=== PATIENT | male | born 1970 | race Caucasian/White ===

== ENCOUNTER 2018-03-04 02:16 | Emergency (ER) | payer MEDICAID ==
[~2018-03-04] VITALS: Ht 182.9 cm; Wt 95.5 kg
[2018-03-04 02:17] VITALS: BP 136/85
[2018-03-04] MEDS ORDERED: naproxen 500mg tablet PO ONE (02:30)
== END 2018-03-04 02:43 ==
LOC: ER 02:16
DX: Z04.1 Encounter for examination and observation following transport accident (principal); F17.200 Nicotine dependence, unspecified, uncomplicated; F15.90 Other stimulant use, unspecified, uncomplicated; V49.69XA Unspecified car occupant injured in collision with other motor vehicles in traffic accident, initial encounter; Y93.89 Activity, other specified; Y92.488 Other paved roadways as the place of occurrence of the external cause; Y99.8 Other external cause status
CPT/HCPCS: 99283

== ENCOUNTER 2019-03-28 05:04 | Emergency (ER) | payer MEDICAID, OTHER ==
[~2019-03-28] VITALS: Ht 182.9 cm; Wt 97.7 kg
[2019-03-28] MEDS ORDERED: predniSONE 20 mg tablet PO ONE (05:25)
[2019-03-28] MEDS ORDERED: ipratropium/albuterol 3ml nebule NEB ONE (05:25)
[2019-03-28] MEDS ORDERED: ALBU18HF2 INH (05:44)
[2019-03-28] MEDS ORDERED: PRED20TA PO (05:44)
[2019-03-28] MEDS ORDERED: BENZ-16 PO (05:44)
[2019-03-28] MEDS ORDERED: INHA1INH2 (05:44)
[2019-03-28 05:45] VITALS: BP 116/86
== END 2019-03-28 06:05 | disposition home or self-care (01) ==
LOC: ER 05:05
DX: J98.01 Acute bronchospasm (principal); F17.200 Nicotine dependence, unspecified, uncomplicated; F10.99 Alcohol use, unspecified with unspecified alcohol-induced disorder; F15.90 Other stimulant use, unspecified, uncomplicated; F11.90 Opioid use, unspecified, uncomplicated; Z86.19 Personal history of other infectious and parasitic diseases; Z59.0 Homelessness; Z79.899 Other long term (current) drug therapy; Y90.9 Presence of alcohol in blood, level not specified
CPT/HCPCS: 71046; 94640; 94760; 99283; J7512

== ENCOUNTER 2019-04-19 06:37 | Emergency (ER) | payer MEDICAID, OTHER ==
[~2019-04-19] VITALS: Ht 185.4 cm; Wt 100.0 kg
[~2019-04-19 06:37] MED LIST: ALBU18HF2 INH; BENZ-16 PO; INHA1INH2; PRED20TA PO
[2019-04-19] MEDS ORDERED: methylPREDNISolone sod succ 125mg/2ml vial IV ONE (07:00)
[2019-04-19] MEDS ORDERED: ipratropium/albuterol 3ml nebule NEB ONE (07:20)
[2019-04-19 07:22] LABS: BASOPHILS # (AUTO) 0.1 X10'3 (0-0.2); BASOPHILS % (AUTO) 0.6 % (0-1); EOSINOPHILS % (AUTO) 10.8 % (0-6); HEMATOCRIT 49.6 % (42.0-52.0); HEMOGLOBIN 17.4 g/dl (14.0-17.9); LYMPHOCYTES # (AUTO) 1.8 X10'3 (1.1-4.8); LYMPHOCYTES % (AUTO) 19.2 % (21-51); MEAN CORPUSCULAR HEMOGLOBIN 32.7 PG (27.0-31.0); MEAN CORPUSCULAR HGB CONC 35.2 g/dL (33.0-36.5); MEAN CORPUSCULAR VOLUME 92.9 FL (78-98); MEAN PLATELET VOLUME 8.8 FL (7.4-10.4); MONOCYTES # (AUTO) 0.8 X10'3 (0-0.9); MONOCYTES % (AUTO) 7.9 % (2-12); NEUTROPHILS # (AUTO) 5.9 X10'3 (1.8-7.7); NEUTROPHILS % (AUTO) 61.5 % (42-75); PLATELET COUNT 205 X10'3 (140-440); RED BLOOD COUNT 5.33 X10'6 (4.70-6.10); RED CELL DISTRIBUTION WIDTH 12.8 % (11.5-14.5); WHITE BLOOD COUNT 9.6 X10'3 (4.5-11.0)
[2019-04-19 07:35] LABS: PARTIAL THROMBOPLASTIN TIME 28 SECONDS (22-32)
[2019-04-19 07:37] LABS: ALANINE AMINOTRANSFERASE 40 U/L (12-78); ALBUMIN 3.7 G/DL (3.4-5.0); ALKALINE PHOSPHATASE 73 IU/L (46-116); ANION GAP 8 (8-16); ASPARTATE AMINO TRANSFERASE 29 U/L (10-37); BILIRUBIN,TOTAL 0.9 MG/DL (0.1-1.0); BLOOD UREA NITROGEN 16 MG/DL (7-18); BUN/CREATININE RATIO 19.3 (5.4-32.0); CALCIUM 8.9 MG/DL (8.5-10.1); CHLORIDE 102 MMOL/L (99-107); CREATININE 0.83 MG/DL (0.60-1.10); GLUCOSE 105 MG/DL (70-104); POTASSIUM 4.1 MMOL/L (3.5-5.1); SODIUM 139 MMOL/L (135-145); TOTAL CARBON DIOXIDE 28.8 MMOL/L (24-32); TOTAL PROTEIN 7.5 G/DL (6.4-8.2); eGFR > 90 ML/MIN
[2019-04-19] MEDS ORDERED: PRED10TA23 PO (07:42)
[2019-04-19] MEDS ORDERED: ALBU8.5H8 IH (07:42)
[2019-04-19] MEDS ORDERED: AZIT250T PO (07:42)
[2019-04-19 08:15] LABS: LARGE PLATELETS FEW; PLATELET ESTIMATE NORMAL; TOTAL CELLS COUNTED 100
[2019-04-19 08:41] VITALS: BP 142/80
== END 2019-04-19 08:43 | disposition home or self-care (01) ==
LOC: ER 06:37
DX: J45.901 Unspecified asthma with (acute) exacerbation (principal); F15.90 Other stimulant use, unspecified, uncomplicated; F11.90 Opioid use, unspecified, uncomplicated; F17.210 Nicotine dependence, cigarettes, uncomplicated; Z86.19 Personal history of other infectious and parasitic diseases; Z79.2 Long term (current) use of antibiotics; Z79.899 Other long term (current) drug therapy
CPT/HCPCS: 36415; 71045; 80053; 84484; 85025; 85610; 85730; 93005; 94640; 94760; 96374; 99284; J2930

== ENCOUNTER 2019-10-23 05:28 | Emergency (ER) | payer MEDICAID, OTHER ==
[~2019-10-23] VITALS: Ht 182.9 cm; Wt 90.9 kg
[~2019-10-23 05:28] MED LIST changes: +ALBU8.5H8 IH; +AZIT250T PO; -BENZ-16 PO; -PRED20TA PO
[2019-10-23] MEDS ORDERED: methylPREDNISolone sod succ 125mg/2ml vial IV ONE (05:40)
[2019-10-23] MEDS ORDERED: normal saline 1000ML IV soln IVB ONE (05:40)
[2019-10-23] MEDS ORDERED: ipratropium/albuterol 3ml nebule NEB ONE (05:40)
[2019-10-23 05:58] LABS: BASOPHILS # (AUTO) 0.1 X10'3 (0-0.2); BASOPHILS % (AUTO) 0.6 % (0-1); EOSINOPHILS % (AUTO) 10.5 % (0-6); HEMATOCRIT 47.2 % (42.0-52.0); HEMOGLOBIN 16.1 g/dl (14.0-17.9); LYMPHOCYTES % (AUTO) 21.7 % (21-51); MEAN CORPUSCULAR HEMOGLOBIN 31.3 PG (27.0-31.0); MEAN CORPUSCULAR HGB CONC 34.1 g/dL (33.0-36.5); MEAN PLATELET VOLUME 8.9 FL (7.4-10.4); MONOCYTES % (AUTO) 10.3 % (2-12); NEUTROPHILS # (AUTO) 5.3 X10'3 (1.8-7.7); NEUTROPHILS % (AUTO) 56.9 % (42-75); PLATELET COUNT 195 X10'3 (140-440); RED BLOOD COUNT 5.13 X10'6 (4.70-6.10); RED CELL DISTRIBUTION WIDTH 13.2 % (11.5-14.5); WHITE BLOOD COUNT 9.3 X10'3 (4.5-11.0)
[2019-10-23] MEDS ORDERED: heparin 25,000 UNIT/250ml bag 250 ML IV SCH (05:59)
[2019-10-23] MEDS ORDERED: heparin 10,000 units/1 ML INJ IV ONE (06:00)
[2019-10-23] MEDS ORDERED: heparin 10,000 units/1 ML INJ IV PRN (06:00)
[2019-10-23 06:11] LABS: ALANINE AMINOTRANSFERASE 36 U/L (12-78); ALBUMIN/GLOBULIN RATIO 0.9 (1.1-1.5); ALKALINE PHOSPHATASE 112 IU/L (46-116); ANION GAP 5 (8-16); ASPARTATE AMINO TRANSFERASE 28 U/L (10-37); BILIRUBIN,TOTAL 0.5 MG/DL (0.1-1.0); BLOOD UREA NITROGEN 11 MG/DL (7-18); CALCIUM 9.1 MG/DL (8.5-10.1); CHLORIDE 106 MMOL/L (99-107); CREATININE 0.92 MG/DL (0.60-1.10); GLUCOSE 84 MG/DL (70-104); POTASSIUM 4.5 MMOL/L (3.5-5.1); SODIUM 145 MMOL/L (135-145); TOTAL PROTEIN 8.7 G/DL (6.4-8.2); eGFR 87 ML/MIN
[2019-10-23] MEDS ORDERED: CefTRIAXone/D5W-Rocephin 1gm 50 ML IV ONE (06:25)
[2019-10-23] MEDS ORDERED: NO HOME MEDS (06:27)
[2019-10-23 07:24] LABS: C-REACTIVE PROTEIN 1.22 MG/DL (0.0-0.5)
[2019-10-23 07:26] LABS: D-DIMER 0.87 MG/L FEU (0-0.50)
--- NOTE | 2019-10-23 07:35 | NUR ---
DR GRISSOM MADE AWARE OF D DIMER ELEVATION, NO NEW ORDERS AT THIS TIME.
--- NOTE | 2019-10-23 08:30 | NUR ---
RESTING IN ROOM, NO S/SX OF DISTRESS NOTED.
[2019-10-23] MEDS ORDERED: magnesium 4gm in 100ml NS 100 ML IV PRN (09:05)
[2019-10-23] MEDS ORDERED: acetaminophen 325mg tablet PO PRN (09:05)
[2019-10-23] MEDS ORDERED: potassium CL 10mEq/100ml bag 100 ML IV PRN ×2 (09:05)
[2019-10-23] MEDS ORDERED: ondansetron/PF 4mg/2ml inj IV PRN (09:05)
[2019-10-23] MEDS ORDERED: potassium Cl 20 mEq SR tablet PO PRN ×2 (09:05)
[2019-10-23] MEDS ORDERED: normal saline 1000ml 1,000 ML IV SCH (09:05)
[2019-10-23] MEDS ORDERED: magnesium Cl slow-release 64mg tablet PO PRN (09:05)
[2019-10-23] MEDS ORDERED: magnesium 2GM in 50ml NS 50 ML IV PRN (09:05)
--- NOTE | 2019-10-23 09:30 | NUR ---
PLANS TO ADMIT PATIENT, WAITING ON BED AND ROOM NUMBER ASSIGNMENT.
--- NOTE | 2019-10-23 10:35 | NUR ---
PATIENT RESTING ON ROOM AIR AT 93%, CONCERNED WHAT WILL HAPPEN TO HIS BELONGINGS IF ADMITTED AND IS NOT DISCHARGED IN THE AM TOMORROW (PRIOR TO HOTEL CHECKOUT TIME) D/T HIM LIVING IN A HOTEL AND BEING HOMELESS. HE'S CALLED HIS SISTER FOR HELP BUT HAS BEEN UNABLE TO MAKE CONTACT.
--- NOTE | 2019-10-23 12:38 | NUR ---
relieving RN for break, pt has room assignment but wants to leave "I have to get my stuff out the motel room or else I lose everything", Dr Wetzel at bedside to talk with pt, pt remains adamant about leaving, pt understands risks up to and including , pt plans to follow up with [facility]
[2019-10-23] MEDS ORDERED: ALBU18HF2 INH (12:39)
[2019-10-23] MEDS ORDERED: PRED20TA PO (12:39)
--- NOTE | 2019-10-23 12:48 | NUR ---
pt left AMA, verbalized understanding AMA, pt is aware he can return at anytime, pt is GCS 15, alert and oriented x3, resp even and unlabored, skin p/w/d, IV to rt wrist dc'd, cannula intact
[2019-10-23 12:51] VITALS: BP 124/77
--- NOTE | 2019-10-23 13:01 | NUR ---
Dr Arellano aware pt left AMA
[2019-10-23] MEDS ORDERED: heparin, porcine 5000 units/ml vial SQ SCH (20:00)
[2019-10-23] MEDS ORDERED: K and/or MAG REPLACEMENT MC SCH (20:00)
== END 2019-10-23 13:04 | disposition left against medical advice (07) ==
LOC: ER 05:28 → UNDOADMIN 09:05 → ED HOLD 09:05 → ER 13:04
DX: R06.03 Acute respiratory distress (principal); R09.02 Hypoxemia; R06.02 Shortness of breath; R05 Cough; Z03.818 Encounter for observation for suspected exposure to other biological agents ruled out; J45.909 Unspecified asthma, uncomplicated; F17.200 Nicotine dependence, unspecified, uncomplicated; F15.90 Other stimulant use, unspecified, uncomplicated; F11.90 Opioid use, unspecified, uncomplicated; Z72.89 Other problems related to lifestyle; Z86.19 Personal history of other infectious and parasitic diseases; Z59.0 Homelessness; Z79.899 Other long term (current) drug therapy
CPT/HCPCS: 36415; 71045; 80053; 83605; 83880; 85025; 85379; 85610; 86140; 87040; 87635; 93005; 94640; 96365; 96375; 99285; J0696; J2930; J7030; 94760

== ENCOUNTER 2019-11-19 01:37 | Emergency (ER) | payer MEDICAID ==
[~2019-11-19] VITALS: Ht 182.9 cm; Wt 93.2 kg
[~2019-11-19 01:37] MED LIST changes: -ALBU8.5H8 IH; -AZIT250T PO; -INHA1INH2; +NO HOME MEDS; +PRED20TA PO
[2019-11-19] MEDS ORDERED: ipratropium 0.5 MG/2.5ML nebule IH ONE (02:30)
[2019-11-19] MEDS ORDERED: normal saline 1000ML IV soln IVB ONE (02:30)
[2019-11-19] MEDS ORDERED: methylPREDNISolone sod succ 125mg/2ml vial IV ONE (02:30)
[2019-11-19] MEDS ORDERED: albuterol 2.5 MG/3 ML nebule CONTNEB PRN (02:30)
--- NOTE | 2019-11-19 03:58 | NUR ---
Logan issued per Dr. Tomlinson.
[2019-11-19] MEDS ORDERED: PRED20TA PO (04:00)
[2019-11-19 04:19] VITALS: BP 133/86
== END 2019-11-19 04:21 | disposition home or self-care (01) ==
LOC: ER 01:38
DX: J44.1 Chronic obstructive pulmonary disease with (acute) exacerbation (principal); F17.200 Nicotine dependence, unspecified, uncomplicated; F15.90 Other stimulant use, unspecified, uncomplicated; F11.90 Opioid use, unspecified, uncomplicated; Z59.0 Homelessness; Z86.19 Personal history of other infectious and parasitic diseases; Z88.0 Allergy status to penicillin; Z79.899 Other long term (current) drug therapy
CPT/HCPCS: 94644; 96374; 99285; J2930; J7030; 94640; 94760

== ENCOUNTER 2019-12-04 05:05 | Emergency (ER) | payer MEDICAID ==
[~2019-12-04] VITALS: Ht 182.9 cm; Wt 83.0 kg
[2019-12-04] MEDS ORDERED: ipratropium/albuterol 3ml nebule NEB ONE (05:25)
[2019-12-04] MEDS ORDERED: methylPREDNISolone sod succ 125mg/2ml vial IV ONE (05:25)
[2019-12-04] MEDS ORDERED: ALBU8HFA PO (06:33)
[2019-12-04] MEDS ORDERED: PRED20TA PO (06:33)
[2019-12-04] MEDS ORDERED: DOXY100C43 PO (06:33)
[2019-12-04 06:34] LABS: BASOPHILS % (AUTO) 0.4 % (0-1); EOSINOPHILS # (AUTO) 0.6 X10'3 (0-0.9); EOSINOPHILS % (AUTO) 7.2 % (0-6); HEMOGLOBIN 15.3 g/dl (14.0-17.9); LYMPHOCYTES # (AUTO) 1.9 X10'3 (1.1-4.8); LYMPHOCYTES % (AUTO) 21.7 % (21-51); MEAN CORPUSCULAR HEMOGLOBIN 30.6 PG (27.0-31.0); MEAN CORPUSCULAR VOLUME 90.2 FL (78-98); MEAN PLATELET VOLUME 8.7 FL (7.4-10.4); MONOCYTES # (AUTO) 0.8 X10'3 (0-0.9); MONOCYTES % (AUTO) 9.2 % (2-12); NEUTROPHILS # (AUTO) 5.4 X10'3 (1.8-7.7); NEUTROPHILS % (AUTO) 61.5 % (42-75); PLATELET COUNT 225 X10'3 (140-440); RED BLOOD COUNT 4.98 X10'6 (4.70-6.10); RED CELL DISTRIBUTION WIDTH 13.4 % (11.5-14.5); WHITE BLOOD COUNT 8.8 X10'3 (4.5-11.0)
[2019-12-04 06:47] LABS: PARTIAL THROMBOPLASTIN TIME 28 SECONDS (22-32)
[2019-12-04 06:53] LABS: ALANINE AMINOTRANSFERASE 22 U/L (12-78); ALBUMIN 3.6 G/DL (3.4-5.0); ALBUMIN/GLOBULIN RATIO 0.9 (1.1-1.5); ALKALINE PHOSPHATASE 94 IU/L (46-116); ANION GAP 4 (8-16); ASPARTATE AMINO TRANSFERASE 14 U/L (10-37); BILIRUBIN,TOTAL 0.7 MG/DL (0.1-1.0); BLOOD UREA NITROGEN 15 MG/DL (7-18); BUN/CREATININE RATIO 14.3 (5.4-32.0); CALCIUM 8.8 MG/DL (8.5-10.1); CHLORIDE 106 MMOL/L (99-107); CREATININE 1.05 MG/DL (0.60-1.10); GLUCOSE 107 MG/DL (70-104); POTASSIUM 4.2 MMOL/L (3.5-5.1); SODIUM 142 MMOL/L (135-145); TOTAL CARBON DIOXIDE 31.6 MMOL/L (24-32); TOTAL PROTEIN 7.8 G/DL (6.4-8.2); eGFR 74 ML/MIN
[2019-12-04 07:33] VITALS: BP 123/79
== END 2019-12-04 07:35 | disposition home or self-care (01) ==
LOC: ER 05:06
DX: J44.1 Chronic obstructive pulmonary disease with (acute) exacerbation (principal); J20.9 Acute bronchitis, unspecified; F15.90 Other stimulant use, unspecified, uncomplicated; F11.90 Opioid use, unspecified, uncomplicated; F17.299 Nicotine dependence, other tobacco product, with unspecified nicotine-induced disorders; Z59.0 Homelessness; Z86.19 Personal history of other infectious and parasitic diseases; Z76.0 Encounter for issue of repeat prescription; Z88.0 Allergy status to penicillin; Z79.899 Other long term (current) drug therapy
CPT/HCPCS: 36415; 71045; 80053; 83880; 84484; 85025; 85610; 85730; 93005; 94640; 96374; 99285; 99406; J2930; 94760